=== PATIENT | female | born 1985 | race Caucasian/White ===

== ENCOUNTER 2018-11-07 08:24 | Emergency (ER) | payer SELFPAY ==
[~2018-11-07] VITALS: Ht 157.5 cm; Wt 73.2 kg
[2018-11-07 08:27] VITALS: BP 108/52; PULSE 94; RESP 24; Ht 157.5 cm; Wt 73.2 kg
[2018-11-07] MEDS ORDERED: ESCI5TAB PO (08:47)
--- NOTE | 2018-11-07 09:06 | ERD ---
ER Documentation Chief Complaint Chief Complaint NEEDS REFILL ON LEXAPRO 5MG BID. LAST TAKEN 3 DAYS AGO HPI Patient is a 33-year-old female with a history of depression who presents the ER requesting refill of her Lexapro. Patient states she takes Lexapro 5 mg twice daily. Patient states she last took her medication 3 days ago. Patient is currently living in a [facility] with her children. Patient denies any homicidal or suicidal ideations at this time. Patient denies any chest pain or shortness of breath, nausea, vomiting, abdomi nal pain. Patient states she is only here for refill of her medications. ROS All systems reviewed and are negative except as per history of present illness. Medications Home Meds Active Scripts Escitalopram Oxalate* (Lexapro*) 5 Mg Tablet, 5 MG PO BID, #30 TAB Prov:CHRISTIANO WOODARD PA-C 11/07/18 Allergies Allergies: Coded Allergies: No Known Allergy (Unverified , 11/07/18) PMhx/Soc Medical and Surgical Hx: pt denies Medical Hx FmHx Family History: No diabetes Physical Exam Vitals Vital Signs Date Temp Pulse Resp B/P (MAP) Pulse Ox O2 O2 Flow FiO2 Time Delivery Rate 11/07/18 97.2 94 24 108/52 99 08:27 (70) Physical Exam GENERAL: Well-developed, well-nourished female. Appears in no acute distress. Speaking in full sentences. HEAD: Normocephalic, atraumatic. EYES: Pupils are equally reactive bilaterally. EOMs grossly intact. No conjunctival erythema. NECK: Supple. No meningismus. Normal range of motion of the neck. LUNG: Clear to auscultation bilaterally. No rhonchi, wheezing, rales or coarse breath sounds. HEART: Regular rate and rhythm. No murmurs, rubs or gallops. EXTREMITIES: Equal pulses bilaterally. No peripheral clubbing, cyanosis or edema. No unilateral leg swelling. NEUROLOGIC: Alert and oriented. Moving all four extremities without any difficulty. Normal speech. Steady gait. SKIN: Normal color. Warm and dry. No rashes or lesions. PSYCH: Normal mood and affect. No suicidal ideations. No homicidal ideations. Procedures/MDM MEDICAL DECISION MAKING: Patient is a 33-year-old male with past medical history of depression presents ER needing a refill of her Lexapro.. Vital signs were reviewed. Patient is afebrile. Patient was not hypoxic. Patient was hemodynamically stable. Patient denied any homicidal ideations or suicidal ideations. Cures report was reviewed and patient had no evidence of narcotic or benzo abuse. Patient will be given refill of Lexapro and she was advised to follow-up with primary care physician for additional refills of medications. Patient was nontoxic, non-opening prior to discharge. DISCHARGE: At this time, patient is stable for discharge and outpatient management. I have instructed the patient to follow-up with his/her primary care physician in 1-2 days. I have discussed with the patient the possibility of needing to see a specialist for further workup and imaging studies if symptoms persist. I have instructed the patient to promptly return to the ER for any new or worsening symptoms including increased pain, fever, nausea, vomiting, weakness or LOC. The patient and/or family expressed understanding of and agreement with this plan. All questions were answered. Home care instructions were provided. Disclaimer: Inadvertent spelling and grammatical errors are likely due to EHR/dictation software use and do not reflect on the overall quality of patient care. Also, please note that the electronic time recorded on this note does not necessarily reflect the actual time of the patient encounter. Departure Diagnosis: Primary Impression: Encounter for medication refill Additional Impression: Depression Depression Type: unspecified Qualified Codes: F32.9 - Major depressive disorder, single episode, unspecified Condition: Fair Patient Instructions: Taking Medicine Safely Referrals: [facility] YOU HAVE RECEIVED A MEDICAL SCREENING EXAM AND THE RESULTS INDICATE THAT YOU DO NOT HAVE A CONDITION THAT REQUIRES URGENT TREATMENT IN THE EMERGENCY DEPARTMENT. FURTHER EVALUATION AND TREATMENT OF YOUR CONDITION CAN WAIT UNTIL YOU ARE SEEN IN YOUR DOCTORS OFFICE WITHIN THE NEXT 1-2 DAYS. IT IS YOUR RESPONSIBILITY TO MAKE AN APPOINTMENT FOR FOLOW-UP CARE. IF YOU HAVE A PRIMARY DOCTOR --you should call your primary doctor and schedule an appointment IF YOU DO NOT HAVE A PRIMARY DOCTOR YOU CAN CALL OUR PHYSICIAN REFERRAL HOTLINE AT IF YOU CAN NOT AFFORD TO SEE A PHYSICIAN YOU CAN CHOSE FROM THE FOLLOWING [facility] [address] [facility]. [facility] [address] [facility] [facility] [address] [facility] [facility] [address] [facility] [facility] [address] [facility]. [facility]. [address] [facility]. [facility] YOU HAVE RECEIVED A MEDICAL SCREENING EXAM AND THE RESULTS INDICATE THAT YOU DO NOT HAVE A CONDITION THAT REQUIRES URGENT TREATMENT IN THE EMERGENCY DEPARTMENT. FURTHER EVALUATION AND TREATMENT OF YOUR CONDITION CAN WAIT UNTIL YOU ARE SEEN IN YOUR DOCTORS OFFICE WITHIN THE NEXT 1-2 DAYS. IT IS YOUR RESPONSIBILITY TO MAKE AN APPOINTMENT FOR FOLOW-UP CARE. IF YOU HAVE A PRIMARY DOCTOR --you should call your primary doctor and schedule and appointment IF YOU DO NOT HAVE A PRIMARY DOCTOR YOU CAN CALL OUR PHYSICIAN REFERRAL HOTLINE AT . IF YOU CAN NOT AFFORD TO SEE A PHYSICIAN YOU CAN CHOSE FROM THE FOLLOWING [facility] INSTITUTIONS: [facility] [address] [place] [address] [facility] [address] [place], [place] [address] [place] [address] [address] [place] [address] Additional Instructions: Call your primary care doctor TOMORROW for an appointment during the next 1-2 days.See the doctor sooner or return here if your condition worsens before your appointment time. CHRISTIANO WOODARD PA-C Nov 07, 2018 09:06
[2018-12-01] MEDS ORDERED: ESCI5TAB PO (09:09)
== END 2018-11-07 09:04 | disposition home or self-care (01) ==
LOC: FTE 08:24
DX: F32.9 Major depressive disorder, single episode, unspecified (principal)
CPT/HCPCS: 99281